=== PATIENT | male | born 1995 | race American Indian/Alaskan Native ===

== ENCOUNTER 2017-07-11 22:42 | Emergency (ER) | payer SELFPAY ==
[2017-07-12 03:12] VITALS: BP 151/80
--- NOTE | 2017-07-12 03:29 | XRay Report ---
FINAL REPORT EXAM: XR CHEST ROUTINE 2V HISTORY: persistent dry cough COMPARISON: None available. FINDINGS:: Frontal and lateral views of the chest obtained. Cardiac silhouette is within normal limits. No focal consolidation or effusion. No pneumothorax. Visualized bony thorax is grossly intact. IMPRESSION:: No acute findings.
--- NOTE | 2017-07-12 04:03 | Emergency Department Report ---
Minor Respiratory - HPI Chief Complaint: Upper Respiratory Infection Stated Complaint: RESPIRATORY INFECTION Time Seen by Provider: 07/12/17 04:02 Duration: 3 Days Severity: moderate Minor Respiratory: Yes Able to Tolerate Fluids, Yes Cough, No Rhinorrhea, No Sore Throat, No Ear Pain, No Sick Contacts, No Hemoptysis, No Chest Pain, No Shortness of Breath, No Fever Other History: Patient is a 22-year-old male with no prior medical history who presents to ED complaining of dry intermittent nonproductive cough. She states symptoms started a couple of days ago. Patient denies fever assess chills/ nausea or vomiting. ED Review of Systems ROS: Stated complaint: RESPIRATORY INFECTION Other details as noted in HPI Constitutional: denies: chills, fever Eyes: denies: eye pain, eye discharge, vision change ENT: congestion. denies: ear pain, throat pain Respiratory: cough, wheezing. denies: shortness of breath Cardiovascular: denies: chest pain, palpitations Endocrine: no symptoms reported Gastrointestinal: denies: abdominal pain, nausea, diarrhea Genitourinary: denies: urgency, dysuria Musculoskeletal: denies: back pain, joint swelling, arthralgia Skin: denies: rash, lesions Neurological: denies: headache, weakness, paresthesias Psychiatric: denies: anxiety, depression Hematological/Lymphatic: denies: easy bleeding, easy bruising ED Past Medical Hx - Past Medical History Previous Medical History?: Yes Hx Asthma: Yes - Surgical History Past Surgical History?: Yes Additional Surgical History: RIGH KNEE - Social History Smoking Status: Current Some Day Smoker - Medications Home Medications: Home Medications Medication Instructions Recorded Confirmed Last Taken Type predniSONE [Deltasone] 10 mg PO .TAPER #21 tab 02/19/16 Unknown Rx ALBUTEROL Inhaler [ProAir HFA 2 puff IH QID PRN #200 inhalation 07/12/17 Unknown Rx Inhaler] Benzonatate [Tessalon Perles] 100 mg PO Q8H #24 capsule 07/12/17 Unknown Rx guaiFENesin [Mucinex] 600 mg PO BID #20 tab.er.12h 07/12/17 Unknown Rx predniSONE [Deltasone] 20 mg PO DAILY #5 tablet 07/12/17 Unknown Rx Minor Respiratory Exam - Exam General: Vital signs noted. No distress. Alert and acting appropriately. HEENT: Yes Moist Mucous Membranes, No Pharyngeal Erythema, No Pharyngeal Exudates, No Rhinorrhea, No Conjuctival Injection, No Frontal Tenderness, No Maxillary Tenderness Ear: Neither TM Bulge, Neither TM Erythema, Neither EAC Pain, Neither EAC Discharge Neck: Yes Supple, No Adenopathy Lungs: Yes Good Air Exchange, Yes Wheezes (mild bilaterally), Yes Cough, No Ronchi, No Stridor, No Labored Respirations, No Retractions, No Use of Accessory Muscles, No Other Abnormal Lung Sounds Heart: Yes Regular, No Murmur Abdomen: Yes Normal Bowel Sounds, No Tenderness, No Peritoneal Signs Skin: No Rash, No Edema Neurologic: Alert and oriented, no deficits. Musculoskeletal: Unremarkable. ED Course Vital Signs 07/12/17 03:05 Temperature 98.4 F Pulse Rate 94 H Respiratory 18 Rate Blood Pressure 151/80 O2 Sat by Pulse 97 Oximetry ED Medical Decision Making - Radiology Data Radiology results: report reviewed, image reviewed FINAL REPORT EXAM: XR CHEST ROUTINE 2V HISTORY: persistent dry cough COMPARISON: None available. FINDINGS:: Frontal and lateral views of the chest obtained. Cardiac silhouette is within normal limits. No focal consolidation or effusion. No pneumothorax. Visualized bony thorax is grossly intact. IMPRESSION:: No acute findings. Transcribed By: LMA Dictated By: MIGUEL PONCE MD Electronically Authenticated By: MIGUEL PONCE MD Signed Date/Time: 07/12/17 0324 - Medical Decision Making 22-year-old male presents with upper respiratory infection with bronchitis ED Course: Patient received x-ray; see report above X-ray shows no acute findings I discussed this patient didn't have the x-ray. I discussed with patient to follow up with the primary care physician I will be sending the patient cough suppressant to relief cough and albuterol inhaler Patient is in no acute or respiratory distress Vital signs are normal palpation shows no neuro deficit. Critical care attestation.: If time is entered above; I have spent that time in minutes in the direct care of this critically ill patient, excluding procedure time. ED Disposition Clinical Impression: Bronchitis URI (upper respiratory infection) Qualifiers: URI type: unspecified URI Qualified Code(s): J06.9 - Acute upper respiratory infection, unspecified Disposition: DC-01 TO HOME OR SELFCARE Is pt being admited?: No Does the pt Need Aspirin: No Condition: Stable Instructions: Upper Respiratory Infection (ED), Acute Bronchitis (ED), Chronic Bronchitis (ED) Additional Instructions: Make sure to follow up with the primary care physician as discussed. Take all your medications as you've been prescribed. If you have any worsening symptoms or develop new symptoms please return to ED immediately. Prescriptions: ALBUTEROL Inhaler [ProAir HFA Inhaler] 2 puff IH QID PRN #200 inhalation PRN Reason: Shortness Of Breath Benzonatate [Tessalon Perles] 100 mg PO Q8H #24 capsule guaiFENesin [Mucinex] 600 mg PO BID #20 tab.er.12h predniSONE [Deltasone] 20 mg PO DAILY #5 tablet Referrals: PRIMARY CAREMD [Primary Care Provider] - 3-5 Days NED HILL MD [Referring] - 3-5 Days [facility] [Outside] - 3-5 Days [facility] [Outside] - 3-5 Days Forms: Accompanied Note, Work/School Release Form(ED) Time of Disposition: 04:32
[2017-07-12] MEDS ORDERED: TYLENOL/CODEINE PO ONE (04:29)
[2017-07-12] MEDS ORDERED: DELTASONE PO ONE (04:29)
[2017-07-12] MEDS ORDERED: TESSALON PERLES PO ONE (04:30)
== END 2017-07-12 05:05 | disposition home or self-care (01) ==
LOC: ED 22:42
DX: J40 Bronchitis, not specified as acute or chronic (principal); J06.9 Acute upper respiratory infection, unspecified; F17.200 Nicotine dependence, unspecified, uncomplicated
CPT/HCPCS: 71046; 99283; J7512

== ENCOUNTER 2019-04-30 11:33 | Outpatient (CLI) | payer OTHER | END 2019-04-30 11:34 | disposition home or self-care (01) | LOC: PF 11:33 | PROVIDERS: ATTEND Internal Medicine | DX: J45.909 Unspecified asthma, uncomplicated (principal); M92.50 Unspecified juvenile osteochondrosis of tibia and fibula; Z02.71 Encounter for disability determination | CPT/HCPCS: 94010; 94729 ==